=== PATIENT | female | born 1975 | race Caucasian/White ===

== ENCOUNTER 2023-06-18 09:02 | Emergency (ER) | payer MEDICAID ==
[~2023-06-18] VITALS: Ht 152.4 cm; Wt 101.2 kg
[2023-06-18 09:56] VITALS: TEMP 98.3
[2023-06-18 10:37] LABS: BASOPHILS % (AUTO) 0.2 % (0.0-2.0); EOSINOPHILS % (AUTO) 0.9 % (1.0-6.0); HEMATOCRIT 37.5 % (36-46); HEMOGLOBIN 12.4 g/dL (12.0-16.0); LYMPHOCYTES # (AUTO) 1.7 K/uL (1.0-4.8); MEAN CORPUSCULAR HEMOGLOBIN 27.8 pg (26.0-34.0); MEAN CORPUSCULAR HGB CONC 33.1 G/dL (31.0-37.0); MEAN CORPUSCULAR VOLUME 84 fL (80-100); MONOCYTES # (AUTO) 0.7 K/uL (0.1-1.0); MONOCYTES % (AUTO) 6.4 % (2.0-9.0); NEUTROPHILS % (AUTO) 76.5 % (40.0-70.0); PLATELET COUNT (AUTO) 283 K/uL (150-450); RED BLOOD CELL COUNT(AUTO) 4.46 MIL/uL (4.00-5.20); RED CELL DISTRIBUTION WIDTH 15.2 % (11.5-14.5); WHITE BLOOD COUNT (AUTO) 10.4 K/uL (4.5-11.0)
[2023-06-18 10:42] LABS: ANION GAP 5 mmol/L (8-16); CALCIUM, TOTAL 10.1 mg/dL (8.8-10.5); CARBON DIOXIDE 29 mmol/L (22-29); CHLORIDE 102 mmol/L (98-107); CREATININE 0.84 mg/dL (0.60-1.30); GLOMERULAR FILTR. RATE CALC > 60 mL/min (>60); GLUCOSE,RANDOM 147 mg/dL (70-110); POTASSIUM 3.9 mmol/L (3.5-5.1); SODIUM SERUM 136 mmol/L (136-145); UREA NITROGEN, BLOOD 21 mg/dL (7-18)
[2023-06-18 10:47] LABS: AMPHET/METH SCREEN,URINE NEGATIVE (NEGATIVE); BARBITURATE SCREEN, URINE NEGATIVE (NEGATIVE); BENZODIAZEPINES SCREEN,URINE NEGATIVE (NEGATIVE); CANNABINOID SCREEN,URINE NEGATIVE (NEGATIVE); COCAINE SCREEN,URINE NEGATIVE (NEGATIVE); METHADONE SCREEN, URINE NEGATIVE (NEGATIVE); OPIATE SCREEN,URINE NEGATIVE (NEGATIVE); PHENCYCLIDINE SCREEN,URINE NEGATIVE (NEGATIVE)
[2023-06-18 10:48] LABS: ALCOHOL, URINE DRUG SCREEN NEGATIVE (NEGATIVE)
[2023-06-18 10:48] LABS: ALANINE AMINOTRANSFERASE 28 U/L (12-78); ALBUMIN 3.6 g/dL (3.4-5.0); ALKALINE PHOSPHATASE 132 U/L (46-116); ASPARTATE AMINOTRANSFERASE 14 U/L (15-37); BILIRUBIN,TOTAL 0.2 mg/dL (0.1-1.0)
[2023-06-18 10:51] LABS: ALCOHOL, BLOOD (SERUM) < 3 mg/dL (0-10)
[2023-06-18 10:54] VITALS: BP 119/75; PULSE 68; RESP 16
[2023-06-18 11:12] LABS: COVID AG,FIA SOURCE NASAL SWAB
[2023-06-18 11:33] LABS: SARS-COV2 (COVID) ANTIGEN,FIA Negative (Negative)
[2023-06-18] MEDS ORDERED: TRAZ-252 PO (11:40)
[2023-06-18] MEDS ORDERED: PERP4TAB33 PO (11:40)
[2023-06-18] MEDS ORDERED: BENZ1TAB84 PO (11:40)
[2023-06-18] MEDS ORDERED: PANT-31 PO (11:40)
[2023-06-18] MEDS ORDERED: CHLORPROMAZINE PO (11:40)
[2023-06-18] MEDS ORDERED: METF-81 PO (11:40)
[2023-06-18] MEDS ORDERED: METO25XL PO (11:40)
[2023-06-18] MEDS ORDERED: LITH300C3 PO (11:40)
== END 2023-06-18 11:43 | disposition home or self-care (01) ==
LOC: EMS 09:06
DX: R46.2 Strange and inexplicable behavior (principal); Z20.822 Contact with and (suspected) exposure to COVID-19
CPT/HCPCS: 99284; 87426; 80053; 84703; 85025; 36415; 80307; G0480